=== PATIENT | female | born 1945 | race Caucasian/White ===

== ENCOUNTER 2020-09-27 20:55 | Emergency (ER) | payer MEDICARE, BC ==
[2020-09-27] MEDS ORDERED: Sodium Chloride 0.9% 10 ML Syringe FLUSH PRN (21:13)
--- NOTE | 2020-09-27 21:25 | EDM.PDOC ---
ED HPI GENERAL MEDICAL PROBLEM - General Chief Complaint: Neurological Problem Stated Complaint: ELEV. BLOOD PRESSURE Time Seen by Provider: 09/27/20 21:05 Source of Information: Reports: Patient, EMS, Old Records - History of Present Illness INITIAL COMMENTS - FREE TEXT/NARRATIVE: Alize, 75-year-old female, sent to the emergency department by ambulance from the [facility] in [place]. Staff stated that she had issues with speech as well as elevated blood pressure. She is recent admission to the facility so complete history and baseline has not been fully established with the staff. Records are sent with for review as well as review of the 1 chart link with [facility]. She denies any pain, denies any shortness of breath, states that trouble with her words and memory. Memory issues have been noted in problem list from [facility] as well as Parkinson's. Onset: Today Duration: Minutes: Location: Reports: Head - Related Data Allergies Allergy/AdvReac Type Severity Reaction Status Date / Time egg Allergy Cannot Verified 09/28/20 01:05 Remember fluoxetine Allergy Cannot Verified 09/27/20 21:26 Remember zolpidem [From Ambien] Allergy Cannot Verified 09/27/20 21:26 Remember Home Meds: Home Meds Cholecalciferol (Vitamin D3) [Vitamin D3] 1 tab PO DAILY 09/28/20 [History] Mirtazapine [Remeron] 15 mg PO BEDTIME 09/28/20 [History] Multivit-Min/Iron/Folic Acid/K [Adults Multivitamin Tablet] 1 tab PO DAILY 09/28/20 [History] Past Medical History HEENT History: Reports: Allergic Rhinitis, Impaired Vision Cardiovascular History: Reports: High Cholesterol, Hypertension, Other (See Below) (Orthostatic hypotension) Respiratory History: Reports: Asthma, Sleep Apnea Gastrointestinal History: Reports: Colon Polyp, Irritable Bowel Syndrome, Other (See Below) (protien-calorie malnutrition) Genitourinary History: Reports: UTI, Recurrent (most recent 09-23-2020) LOG GETTER History: Reports: Musculoskeletal History: Reports: Osteoporosis, Other (See Below) (generalized weakness, bilateral leg weakness, physical deconditioning) Neurological History: Reports: Parkinson's, Other (See Below) (Vascular dementia without behavior disturbance, Restless leg syndrome, Pituitary adenoma) Psychiatric History: Reports: Anxiety, Dementia, Depression, Other (See Below) (insomnia, memory disorder) Endocrine/Metabolic History: Reports: Osteoporosis, Vitamin D Deficiency, Other (See Below) (chronic fatigue) Oncologic (Cancer) History: Reports: Squamous Cell Carcinoma Social & Family History - Family History Family Medical History: No Pertinent Family History - Tobacco Use Tobacco Use Status *Q: Never Tobacco User Second Hand Smoke Exposure: Yes ED ROS GENERAL - Review of Systems Review Of Systems: See Below Constitutional: Reports: Weakness HEENT: Reports: Other (Speech.) Respiratory: Reports: No Symptoms. Denies: Shortness of Breath, Pleuritic Chest Pain Cardiovascular: Reports: No Symptoms, Blood Pressure Problem ( Blood pressure related to be elevated at the facility but ambulance and our readings here are not hypertensive). Denies: Chest Pain Endocrine: Reports: Fatigue GI/Abdominal: Reports: No Symptoms : Reports: No Symptoms Musculoskeletal: Reports: Back Pain ( stated from her chronic bed positioning.) Skin: Reports: No Symptoms Neurological: Reports: Weakness, Change in Speech Psychiatric: Reports: No Symptoms Hematologic/Lymphatic: Reports: No Symptoms Immunologic: Reports: No Symptoms Free Text/Narrative/Comment: After initial evaluation was completed and tests were being performed, both of Alize sons presented here driving over from [place]. After they had visited with her and we needed to obtain testing I had them stepped out of the room, at which time I asked after their 5 minutes in the room visiting with her if they felt she was worse, better, or the same when they saw her last when she was discharged from [facility] to [facility] in [place]. The one son said he did he felt she was about the same and the other replied she appeared more tired. When questioning the speech issue they stated that that was the reason she was brought into the hospital in [place] was they had noted a slight progression of her speech changing and increased weakness over nearly a 2-week. When she finally agreed that she would go to the hospital for evaluation. At that time she was hospitalized with a questionable UTI which culture is still pending and was discharged the following morning to where she was transported to [place] by her son Hema for admission to the facility for strengthening. By their description it sounds that her overall status secondary of all of the historical diagnosis is virtually unchanged other than the concern that they had significantly elevated blood pressure readings of which both EMS and our readings here were not able to repeat. ED EXAM, GENERAL - Physical Exam Exam: See Below Free Text/Narrative:: Alert, oriented to day date and place, denying any complaint. HEENT shows no nystagmus. She is able to follow my finger and commands. There is no significant deficit to her speech but it is slow, nonslurred, facial features are symmetrical but is noted what appears to be a mild weakness in her motion of her face. NIH score at 3. She is able to point to her tongue smile frown grimace with no deficit noted. Woodman moist mucous membranes. Neck is soft supple no lymphadenopathy. Thorax is clear mildly diminished scattered rhonchi with no wheezes no crackles. Cardiac is S1 is 2 I do not appreciate murmur nor any ectopic beats. No flank pain no abdominal pain bowel sounds present. She moves her extremities about upon command and has a trace drift to the left lower extremity but none to the right. Her hand finger nose to my hand in various positions is 100% intact. There is no drift to the upper extremities. No significant disparity in evaluation. #1 Interpretation EKG Date: 09/27/20 Time: 21:39 Rhythm: NSR Rate (Beats/Min): 79 Florence: LAD-Left Florence Deviation P-Wave: Present QRS: Normal ST-T: Normal QT: Normal Comparison: NA - No Prior EKG ([facility] NOT available for viewing.) Course - Vital Signs Last Recorded V/S: Last Vital Signs Temp 98.4 F 09/28/20 00:05 Pulse 83 09/28/20 00:05 Resp 16 09/28/20 00:05 BP 143/85 H 09/28/20 00:05 Pulse Ox 92 L 09/28/20 00:05 - Orders/Labs/Meds Orders: Active Orders 24 hr Category Date Time Status EKG Documentation Completion [RC] ASDIRECTED Care 09/27/20 21:14 Active Manzano Catheter Insertion [Insert Urinary Catheter] [OM. Care 09/27/20 21:15 Ordered PC] Q24H Peripheral IV Care [RC] . DIRECTED Care 09/27/20 21:14 Active Urinary Catheter Assessment [RC] ASDIRECTED Care 09/27/20 21:15 Active CTA Chest W WO Contrast [Ang Chest] [CT] Stat Exams 09/27/20 22:43 Taken Chest 1V Frontal [CR] Stat Exams 09/27/20 21:13 Taken Head wo Cont [CT] Stat Exams 09/27/20 21:13 Taken CULTURE BLOOD [BC] Stat Lab 09/27/20 21:30 Received CULTURE BLOOD [BC] Stat Lab 09/27/20 21:30 Received Sodium Chloride 0.9% [Normal Saline] 100 ml Med 09/27/20 23:15 Active IV ASDIRECTED Sodium Chloride 0.9% [Saline Flush] Med 09/27/20 21:13 Active 10 ml FLUSH Q8HR PRN Blood Culture x2 Reflex Set [OM.PC] Stat Oth 09/27/20 21:13 Ordered Peripheral IV Insertion Adult [OM.PC] Stat Oth 09/27/20 21:13 Ordered EKG 12 Lead [EK] Stat Ther 09/27/20 21:13 Ordered Medication Orders Sodium Chloride (Normal Saline) 100 mls @ 200 mls/hr IV ASDIRECTED TEJA Last Admin: 09/27/20 23:30 Dose: 200 mls/hr Documented by: LUIGI Sodium Chloride (Sodium Chloride 0.9% 10 Ml Syringe) 10 ml FLUSH Q8HR PRN PRN Reason: keep vein open Labs: Laboratory Tests 09/27/20 09/27/20 09/27/20 Range/Units 07:25 21:07 21:15 WBC 10.57 H (5.00-10.00) 10^3/uL RBC 4.19 (3.80-5.50) 10^6/uL Hgb 13.2 (12.0-16.0) g/dL Hct 39.0 (37.0-47.0) % MCV 93.1 H (82.0-92.0) fL MCH 31.5 H (27.0-31.0) pg MCHC 33.8 (32.0-36.0) g/dL RDW 12.5 (11.5-14.5) % Plt Count 184 (150-400) 10^3/uL MPV 9.6 (7.4-10.4) fL Immature Gran % (Auto) 0.2 (0.0-5.0) % Neut % (Auto) 82.8 H (50.0-70.0) % Lymph % (Auto) 9.4 L (20.0-40.0) % [place] % (Auto) 5.6 (2.0-8.0) % Eos % (Auto) 1.4 (1.0-3.0) % Baso % (Auto) 0.6 (0.0-1.0) % Neut # (Auto) 8.76 H (2.50-7.00) 10^3/uL Lymph # (Auto) 0.99 L (1.00-4.00) 10^3/uL [place] # (Auto) 0.59 (0.10-0.80) 10^3/uL Eos # (Auto) 0.15 (0.10-0.30) 10^3/uL Baso # (Auto) 0.06 (0.00-0.10) 10^3/uL Immature Gran # (Auto) 0.02 (0.00-0.50) 10^3/uL APTT 23.5 (22.8-31.4) SEC D-Dimer, Quantitative (<400) ng/mL Sodium (136-145) mmol/L Potassium (3.5-5.1) mmol/L Chloride (98-107) mmol/L Carbon Dioxide (21.0-32.0) mmol/L Anion Gap (5-15) mmol/L BUN (7-18) mg/dL Creatinine (0.51-1.17) mg/dL Est Cr Clr Drug Dosing mL/min Estimated GFR (MDRD) mL/min Glucose (70-140) mg/dL POC Glucose 114 (70-140) mg/dL Lactic Acid (0.4-2.0) mmol/L Calcium (8.7-10.3) mg/dL Total Bilirubin (0.2-1.0) mg/dL AST (15-37) U/L ALT (14-63) U/L Alkaline Phosphatase (46-116) U/L Total Protein (6.4-8.2) g/dL Albumin (3.40-5.00) g/dL Specimen Type Urine Color (YELLOW) Urine Appearance (CLEAR) Urine pH (5.0-9.0) Ur Specific Lima (1.005-1.030) Urine Protein (NEGATIVE) mg/dL Urine Glucose (UA) (NEGATIVE) mg/dL Urine Ketones (NEGATIVE) mg/dL Urine Occult Blood (NEGATIVE) Urine Nitrite (NEGATIVE) Urine Bilirubin (NEGATIVE) Urine Urobilinogen (0.2-1.0) E.U./dL Ur Leukocyte Esterase (NEGATIVE) Urine RBC (0-5) /HPF Urine WBC (0-5) /HPF Ur Epithelial Cells /LPF Urine Bacteria (NONE TO FEW) /HPF SARS CoV-2 RNA Rapid ALBER (NEGATIVE) 09/27/20 09/27/20 09/27/20 Range/Units 21:25 21:25 21:25 WBC (5.00-10.00) 10^3/uL RBC (3.80-5.50) 10^6/uL Hgb (12.0-16.0) g/dL Hct (37.0-47.0) % MCV (82.0-92.0) fL MCH (27.0-31.0) pg MCHC (32.0-36.0) g/dL RDW (11.5-14.5) % Plt Count (150-400) 10^3/uL MPV (7.4-10.4) fL Immature Gran % (Auto) (0.0-5.0) % Neut % (Auto) (50.0-70.0) % Lymph % (Auto) (20.0-40.0) % [place] % (Auto) (2.0-8.0) % Eos % (Auto) (1.0-3.0) % Baso % (Auto) (0.0-1.0) % Neut # (Auto) (2.50-7.00) 10^3/uL Lymph # (Auto) (1.00-4.00) 10^3/uL [place] # (Auto) (0.10-0.80) 10^3/uL Eos # (Auto) (0.10-0.30) 10^3/uL Baso # (Auto) (0.00-0.10) 10^3/uL Immature Gran # (Auto) (0.00-0.50) 10^3/uL APTT (22.8-31.4) SEC D-Dimer, Quantitative > 5000 H (<400) ng/mL Sodium 141 (136-145) mmol/L Potassium 4.0 (3.5-5.1) mmol/L Chloride 103 (98-107) mmol/L Carbon Dioxide 29.2 (21.0-32.0) mmol/L Anion Gap 12.8 (5-15) mmol/L BUN 18 (7-18) mg/dL Creatinine 0.75 (0.51-1.17) mg/dL Est Cr Clr Drug Dosing 64.96 mL/min Estimated GFR (MDRD) > 60 mL/min Glucose 118 (70-140) mg/dL POC Glucose (70-140) mg/dL Lactic Acid 1.6 (0.4-2.0) mmol/L Calcium 8.0 L (8.7-10.3) mg/dL Total Bilirubin 0.7 (0.2-1.0) mg/dL AST 36 (15-37) U/L ALT 10 L (14-63) U/L Alkaline Phosphatase 64 (46-116) U/L Total Protein 6.0 L (6.4-8.2) g/dL Albumin 2.94 L (3.40-5.00) g/dL Specimen Type Urine Color (YELLOW) Urine Appearance (CLEAR) Urine pH (5.0-9.0) Ur Specific Lima (1.005-1.030) Urine Protein (NEGATIVE) mg/dL Urine Glucose (UA) (NEGATIVE) mg/dL Urine Ketones (NEGATIVE) mg/dL Urine Occult Blood (NEGATIVE) Urine Nitrite (NEGATIVE) Urine Bilirubin (NEGATIVE) Urine Urobilinogen (0.2-1.0) E.U./dL Ur Leukocyte Esterase (NEGATIVE) Urine RBC (0-5) /HPF Urine WBC (0-5) /HPF Ur Epithelial Cells /LPF Urine Bacteria (NONE TO FEW) /HPF SARS CoV-2 RNA Rapid ALBER (NEGATIVE) 09/27/20 09/27/20 Range/Units 22:05 22:23 WBC (5.00-10.00) 10^3/uL RBC (3.80-5.50) 10^6/uL Hgb (12.0-16.0) g/dL Hct (37.0-47.0) % MCV (82.0-92.0) fL MCH (27.0-31.0) pg MCHC (32.0-36.0) g/dL RDW (11.5-14.5) % Plt Count (150-400) 10^3/uL MPV (7.4-10.4) fL Immature Gran % (Auto) (0.0-5.0) % Neut % (Auto) (50.0-70.0) % Lymph % (Auto) (20.0-40.0) % [place] % (Auto) (2.0-8.0) % Eos % (Auto) (1.0-3.0) % Baso % (Auto) (0.0-1.0) % Neut # (Auto) (2.50-7.00) 10^3/uL Lymph # (Auto) (1.00-4.00) 10^3/uL [place] # (Auto) (0.10-0.80) 10^3/uL Eos # (Auto) (0.10-0.30) 10^3/uL Baso # (Auto) (0.00-0.10) 10^3/uL Immature Gran # (Auto) (0.00-0.50) 10^3/uL APTT (22.8-31.4) SEC D-Dimer, Quantitative (<400) ng/mL Sodium (136-145) mmol/L Potassium (3.5-5.1) mmol/L Chloride (98-107) mmol/L Carbon Dioxide (21.0-32.0) mmol/L Anion Gap (5-15) mmol/L BUN (7-18) mg/dL Creatinine (0.51-1.17) mg/dL Est Cr Clr Drug Dosing mL/min Estimated GFR (MDRD) mL/min Glucose (70-140) mg/dL POC Glucose (70-140) mg/dL Lactic Acid (0.4-2.0) mmol/L Calcium (8.7-10.3) mg/dL Total Bilirubin (0.2-1.0) mg/dL AST (15-37) U/L ALT (14-63) U/L Alkaline Phosphatase (46-116) U/L Total Protein (6.4-8.2) g/dL Albumin (3.40-5.00) g/dL Specimen Type Urincath Urine Color Yellow (YELLOW) Urine Appearance Clear (CLEAR) Urine pH 8.5 (5.0-9.0) Ur Specific Lima 1.020 (1.005-1.030) Urine Protein Negative (NEGATIVE) mg/dL Urine Glucose (UA) Negative (NEGATIVE) mg/dL Urine Ketones Negative (NEGATIVE) mg/dL Urine Occult Blood Trace-intact H (NEGATIVE) Urine Nitrite Negative (NEGATIVE) Urine Bilirubin Negative (NEGATIVE) Urine Urobilinogen 0.2 (0.2-1.0) E.U./dL Ur Leukocyte Esterase Negative (NEGATIVE) Urine RBC 0-5 (0-5) /HPF Urine WBC 5-10 H (0-5) /HPF Ur Epithelial Cells Few /LPF Urine Bacteria Rare (NONE TO FEW) /HPF SARS CoV-2 RNA Rapid ALBER Negative (NEGATIVE) Meds: Medications Generic Name Dose Route Start Last Admin Trade Name Freq PRN Reason Stop Dose Admin Sodium Chloride 100 mls @ 200 mls/hr 09/27/20 23:15 09/27/20 23:30 Normal Saline IV 200 mls/hr ASDIRECTED TEJA Administration Sodium Chloride 10 ml 09/27/20 21:13 Sodium Chloride 0.9% 10 Ml Syringe FLUSH Q8HR PRN keep vein open Discontinued Medications Generic Name Dose Route Start Last Admin Trade Name Freq PRN Reason Stop Dose Admin Acetaminophen 1,000 mg 09/28/20 00:06 09/28/20 00:14 Acetaminophen 500 Mg Tab PO 09/28/20 00:07 1,000 mg ONETIME ONE Administration Enoxaparin Sodium 65 mg 09/27/20 23:45 09/27/20 23:58 Enoxaparin 100 Mg/1 Ml Syringe 1 mg/kg (65 mg) 09/27/20 23:46 65 mg SUBCUT Administration ONETIME ONE Iopamidol 75 ml 09/27/20 23:04 09/27/20 23:30 Iopamidol 755 Mg/Ml 75 Ml Bottle IVPUSH 09/27/20 23:05 75 ml ONETIME ONE Administration - Re-Assessments/Exams Free Text/Narrative Re-Assessment/Exam: 09/28/20 00:17 Discussed the situation with Dr. Milady Patricia that I find no significant deficits from what records reveal as well as what her sons confirm. No gross findings requiring hospitalization on the work-up that is performed here with elevated D- dimer with PE being assessed and prophylactically treating clot risks. We will get a schedule for a venous Doppler in the morning when the [facility] opens, orders been placed by Dr. Milady Patricia and [facility] will need to call and obtain that time after 8 AM in the morning. Was given 65 mg of Lovenox for the elevated D-dimer this evening and further anticoagulation orders will be given once the DVT the DVT. Is at no anticoagulation risk that is evident or revealed and with the elevated D-dimer and the fact that she is been for the most part bedbound since her discharge from the hospital as therapy is not started yet at the long-term care facility, this would place her at a higher risk for a DVT. Free Text/Narrative Re-Assessment/Exam: 09/28/20 00:40 Continued delay due to high volume with radiology services as of earlier awaiting CTA report at this time. Original head CT delayed due to PACS system going down delaying the scan and also high-volume delaying the official read coming back with gross read showing no acute hemorrhage. Departure - Departure Time of Disposition: 00:27 Disposition: DC/Tfer to SNF 03 Condition: Fair Clinical Impression: Elevated d-dimer, Parkinson disease, Weakness Vascular dementia Qualifiers: Dementia behavioral disturbance: without behavioral disturbance Qualified Code(s): F01.50 - Vascular dementia without behavioral disturbance Speech abnormality Qualifiers: Speech disturbance type: unspecified speech disturbance Qualified Code(s): R47.9 - Unspecified speech disturbances - Discharge Information *PRESCRIPTION DRUG MONITORING PROGRAM REVIEWED*: Not Applicable *COPY OF PRESCRIPTION DRUG MONITORING REPORT IN PATIENT JAKE: Not Applicable Referrals: Lisa Flaherty MD [Primary Care Provider] - Ivana Puckett MD [Physician] - Forms: ED Department Discharge Additional Instructions: Will discharge back to [facility] With orders for continued care and follow-up appointment tomorrow for ultrasound venous Doppler to rule out DVT secondary of immobility immobility and elevated D-dimer. Positive findings for scattered pulmonary embolus that are nonocclusive were found this morning. Further treatment for that will be discussed after the venous Doppler completed tomorrow, 28 September 2020 Continue all medications and treatments as previously directed with written order forms sent on discharge. Sepsis Event Note (ED) - Focused Exam Vital Signs: Vital Signs Temp Pulse Resp BP Pulse Ox 09/28/20 00:05 98.4 F 83 16 143/85 H 92 L 09/27/20 23:30 80 16 136/85 91 L 09/27/20 23:00 76 16 123/80 92 L 09/27/20 22:30 75 16 117/78 94 L 09/27/20 22:00 78 18 123/77 93 L 09/27/20 21:30 86 18 132/78 90 L 09/27/20 21:11 98.1 F 92 18 139/94 H 96 - Problem List & Annotations (1) Weakness SNOMED Code(s): 15342531 Code(s): R53.1 - WEAKNESS Status: Chronic Priority: High Current Visit: Yes (2) Elevated d-dimer SNOMED Code(s): 190868016 Code(s): R79.89 - OTHER SPECIFIED ABNORMAL FINDINGS OF BLOOD CHEMISTRY Status: Acute Priority: High Current Visit: Yes (3) Vascular dementia SNOMED Code(s): 712015319 Code(s): F01.50 - VASCULAR DEMENTIA WITHOUT BEHAVIORAL DISTURBANCE Status: Chronic Priority: Medium Current Visit: Yes Qualifiers: Dementia behavioral disturbance: without behavioral disturbance Qualified Code(s): F01.50 - Vascular dementia without behavioral disturbance (4) Parkinson disease SNOMED Code(s): 08671497 Code(s): G20 - PARKINSON'S DISEASE Status: Chronic Priority: High Current Visit: Yes (5) Speech abnormality SNOMED Code(s): 69770710, 30930526, 116832156 Code(s): R47.9 - UNSPECIFIED SPEECH DISTURBANCES Status: Chronic Priority: High Current Visit: Yes Qualifiers: Speech disturbance type: unspecified speech disturbance Qualified Code(s): R47.9 - Unspecified speech disturbances (6) Pulmonary embolism, bilateral SNOMED Code(s): 62647756 Code(s): I26.99 - OTHER PULMONARY EMBOLISM WITHOUT ACUTE COR PULMONALE Status: Acute Priority: High Current Visit: Yes - Problem List Review Problem List Initiated/Reviewed/Updated: Yes - My Orders Last 24 Hours: My Active Orders 09/27/20 21:13 Chest 1V Frontal [CR] Stat Head wo Cont [CT] Stat Sodium Chloride 0.9% [Saline Flush] 10 ml FLUSH Q8HR PRN Blood Culture x2 Reflex Set [OM.PC] Stat Peripheral IV Insertion Adult [OM.PC] Stat EKG 12 Lead [EK] Stat 09/27/20 21:14 EKG Documentation Completion [RC] ASDIRECTED Peripheral IV Care [RC] . DIRECTED 09/27/20 21:15 Manzano Catheter Insertion [Insert Urinary Catheter] [OM.PC] Q24H Urinary Catheter Assessment [RC] ASDIRECTED 09/27/20 21:30 CULTURE BLOOD [BC] Stat CULTURE BLOOD [BC] Stat 09/27/20 22:43 CTA Chest W WO Contrast [Ang Chest] [CT] Stat 09/27/20 23:15 Sodium Chloride 0.9% [Normal Saline] 100 ml IV ASDIRECTED - Assessment/Plan Last 24 Hours: My Active Orders 09/27/20 21:13 Chest 1V Frontal [CR] Stat Head wo Cont [CT] Stat Sodium Chloride 0.9% [Saline Flush] 10 ml FLUSH Q8HR PRN Blood Culture x2 Reflex Set [OM.PC] Stat Peripheral IV Insertion Adult [OM.PC] Stat EKG 12 Lead [EK] Stat 09/27/20 21:14 EKG Documentation Completion [RC] ASDIRECTED Peripheral IV Care [RC] . DIRECTED 09/27/20 21:15 Manzano Catheter Insertion [Insert Urinary Catheter] [OM.PC] Q24H Urinary Catheter Assessment [RC] ASDIRECTED 09/27/20 21:30 CULTURE BLOOD [BC] Stat CULTURE BLOOD [BC] Stat 09/27/20 22:43 CTA Chest W WO Contrast [Ang Chest] [CT] Stat 09/27/20 23:15 Sodium Chloride 0.9% [Normal Saline] 100 ml IV ASDIRECTED Plan: Will discharge back to [facility] With orders for continued care and follow-up appointment tomorrow for ultrasound venous Doppler to rule out DVT secondary of immobility immobility and elevated D-dimer. Positive findings for scattered pulmonary embolus that are nonocclusive were found this morning. Further treatment for that will be discussed after the venous Doppler completed tomorrow. Continue all medications and treatments as previously directed with written order forms sent on discharge.
[2020-09-27 21:45] LABS: ANION GAP 12.8 mmol/L (5-15); CHLORIDE,CL 103 mmol/L (98-107); SODIUM,NA 141 mmol/L (136-145)
[2020-09-27] MEDS: Sodium Chloride 0.9% 100 ML IV SCH (23:30)
[2020-09-27] MEDS: Iopamidol 755 Mg/ML 75 ML Bottle IVPUSH ONE (23:30)
[2020-09-27] MEDS: Enoxaparin 100 MG/1 ML Syringe SUBCUT ONE (23:58)
[2020-09-28] MEDS: Acetaminophen 500 MG Tab PO ONE (00:14)
--- NOTE | 2020-09-28 07:53 | CT ---
[id number] CT/CTA Chest EXAM: CT ANGIOGRAM CHEST INDICATION: ELEVATED D DIMER COMPARISON: None. DISCUSSION: There are a few scattered bilateral upper lobe predominant acute pulmonary embolism involving segmental and subsegmental branches. No evidence of acute right heart strain. Atelectasis and/or infiltrate at the lung bases bilaterally, left greater than right. No pleural or pericardial effusion. Coronary artery disease. Atherosclerotic calcifications of the aorta and its branches. No mediastinal, hilar or axillary lymphadenopathy. Multiple peripelvic cysts. Cholecystectomy. Age-indeterminate compression deformity of the T11 vertebral body. IMPRESSION: 1. No acute bilateral segmental and subsegmental pulmonary embolism. No evidence of acute right heart strain. Eduard Dye DO 09/28/20 0752 Thank you for allowing us to participate in the care of your patient.
--- NOTE | 2020-09-28 08:23 | CT ---
[id number] CT/CT Head WO IV EXAM: NONCONTRAST HEAD CT INDICATION: SPEECH CHANGES COMPARISON: None. DISCUSSION: Mild frontotemporal predominate atrophy. Mild multifocal white matter hypoattenuation is nonspecific, but generally ascribed to chronic small vessel ischemia. Age-indeterminate right cerebellar lacunar infarct, favor chronic. No mass effect or midline shift. No acute hemorrhage or extra-axial fluid collection. No acute territorial infarct is identified. Osseous hypertrophy of the bilateral maxillary sinus tolbert. There is a single completely opacified left ethmoid air cell. Mild scattered paranasal sinus mucosal thickening. IMPRESSION: 1. No acute findings. Ender Puri MD 09/28/20 0822 Thank you for allowing us to participate in the care of your patient.
--- NOTE | 2020-09-28 08:31 | CR ---
[id number] RAD/RAD Chest Portable EXAM: PORTABLE CHEST INDICATION: SPEECH CHANGES COMPARISON: None. DISCUSSION: Hyperinflation compatible with chronic obstructive pulmonary disease. Mild bibasilar opacities, favor atelectasis or scarring over early infiltrates. Normal heart size. No effusions. IMPRESSION: 1. Mild bibasilar atelectasis, scarring, or, less likely, infiltrates. Ender Puri MD 09/28/20 0830 Thank you for allowing us to participate in the care of your patient.
== END 2020-09-28 02:35 ==
LOC: KA.ED 20:55
DX: R53.1 Weakness (principal); G20 Parkinson's disease; F01.50 Vascular dementia, unspecified severity, without behavioral disturbance, psychotic disturbance, mood disturbance, and anxiety; R47.9 Unspecified speech disturbances; R79.89 Other specified abnormal findings of blood chemistry; E78.00 Pure hypercholesterolemia, unspecified; I10 Essential (primary) hypertension; Z91.012 Allergy to eggs; Z88.5 Allergy status to narcotic agent; Z20.822 Contact with and (suspected) exposure to COVID-19
CPT/HCPCS: 36415; 70450; 71045; 71275; 80053; 81001; 82947; 83605; 85025; 85379; 85730; 87040; 93005; 96372; 99284; 99285-25; A9270-GY; J1650; Q9967; U0002